=== PATIENT | female | born 1970 | race Caucasian/White ===

== ENCOUNTER 2016-11-12 17:47 | Emergency (ER) | payer BC ==
[~2016-11-12] VITALS: Ht 160 cm; Wt 55.0 kg
[~2016-11-12 17:47] MED LIST: CARV3.125 PO; LACT PO; XANA0.5T PO
[2016-11-12 17:48] VITALS: BP 125/60; PULSE 106; RESP 17; TEMP 98.5; O2SAT 99
[2016-11-12] MEDS ORDERED: IOHEXOL 350 MG/ML 10 ML VIAL (for RAD DIAG) IVCONTRAST ONE (17:48)
[2016-11-12] MEDS ORDERED: SODIUM CHLOR 0.9% 1000 ML INJ 1,000 ML IV SCH (18:10)
[2016-11-12] MEDS ORDERED: ONDANSETRON HCL 4 MG/2 ML VIAL IVP ONE (18:15)
[2016-11-12] MEDS ORDERED: KETOROLAC TROMETHAMINE 30 MG/ML (IVP) VIAL IVP ONE (18:15)
[2016-11-12] MEDS ORDERED: SODIUM CHLORIDE 0.9% FLUSH 10 ML FLUSH IV FLUSH PRN (18:15)
--- NOTE | 2016-11-12 18:19 | PD ---
HPI Chief Complaint: Flank/Kidney Pain Time Seen by Provider: 18:04 Travel History International Travel<30 days: No Contact w/Intl Traveler<30days: No Traveled to known affect area: No History of Present Illness HPI 46yo F with PMH of toxic shock syndrome and ovarian cyst presents to the ED with c/o left sided flank pain that radiates to lower abdomen since yesterday. States it is sharp, decreases with acetaminophen and constant. Associated with dysuria, nausea, fever. Denies any vomiting, chest pain, sob, hematuria, vaginal bleeding or discharge. States she had ultrasound done a few days ago to follow up on her ovarian cyst and it has not change in size. Last menstrual period is a few days ago. Denies any history of kidney stones or abdominal surgeries. Took a dose of amoxicillin that she had at home yesterday. PFSH Past Medical History Hx Anticoagulant Therapy: Yes (VITAMIN E DAILY) Arthritis: No Asthma: No Autoimmune Disease: No Anxiety: Yes Depression: No Heart Rhythm Problems: No Cancer: No High Cholesterol: No Chemotherapy: No Chest Pain: No Congestive Heart Failure: No COPD: No Cerebrovascular Accident: No Diabetes: No Diminished Hearing: No Endocrine: No GERD: No Genitourinary: No Hiatal Hernia: No Immune Disorder: No Kidney Stones: No Musculoskeletal: No Neurologic: No Psychiatric: Yes Reproductive: No Respiratory: No Migraines: No Radiation Therapy: No Renal Failure: No Seizures: No Sickle Cell Disease: No Sleep Apnea: No Thyroid Disease: No Ulcer: No ?: Not Menopausal: Yes Past Surgical History Abdominal Surgery: No AICD: No Arteriovenous Shunt: No Cardiac Surgery: No Ear Surgery: No Endocrine Surgery: No Eye Surgery: No Genitourinary Surgery: No Gynecologic Surgery: No Insulin Pump: No Joint Replacement: No Oral Surgery: No Pacemaker: No Thoracic Surgery: No Social History Alcohol Use: No Tobacco Use: No Substance Use: No Allergies-Medications (Allergen,Severity, Reaction): Coded Allergies: citalopram (Unverified Allergy, Unknown, 10/01/16) duloxetine (Unverified Allergy, Unknown, 10/01/16) fluvoxamine (Unverified Allergy, Unknown, 10/01/16) paroxetine (Unverified Allergy, Unknown, 10/01/16) sertraline (Unverified Allergy, Unknown, 10/01/16) venlafaxine (Unverified Allergy, Unknown, 10/01/16) Reported Meds & Prescriptions Reported Meds & Active Scripts Active Lactinex (Lactobacillus Acidophilus) 1 Tab Tab 1 Tab PO TID 10 Days Coreg 3.125 mg (Carvedilol) 3.125 Mg Tab 3.125 Mg PO Q12 30 Days Reported Xanax 0.5 mg (Alprazolam) Alprazolam 0.5 mg Tab 1 Tab PO DAILY PRN Review of Systems Except as stated in HPI: all other systems reviewed are Neg Physical Exam Narrative GENERAL: 46yo F in mild distress. SKIN: Focused skin assessment warm/dry. HEAD: Atraumatic. Normocephalic. EYES: Pupils equal and round. No scleral icterus. No injection or drainage. ENT: No nasal bleeding or discharge. Mucous membranes pink and moist. NECK: Trachea midline. No JVD. CARDIOVASCULAR: Regular rate and rhythm. No murmur appreciated. RESPIRATORY: No accessory muscle use. Clear to auscultation. Breath sounds equal bilaterally. GASTROINTESTINAL: Abdomen soft, +TTP suprapubic, LUQ, LLQ. No rebound tenderness or guarding. PELVIC: Brownish liquid, pt just finished her menstrual period, may be old blood. No CMT or adnexal tenderness bilaterally. BACK: +CVA tenderness on left. MUSCULOSKELETAL: No obvious deformities. No clubbing. No cyanosis. No edema. NEUROLOGICAL: Awake and alert. No obvious cranial nerve deficits. Motor grossly within normal limits. Normal speech. PSYCHIATRIC: Appropriate mood and affect; insight and judgment normal. Data Data Last Documented VS Vital Signs Date Time Temp Pulse Resp B/P (MAP) Pulse Ox O2 Delivery O2 Flow Rate FiO2 11/12/16 18:27 96 16 122/73 (89) 97 Room Air 11/12/16 17:48 98.5 Orders Orders Complete Blood Count With Diff (11/12/16 18:10) Comprehensive Metabolic Panel (11/12/16 18:10) Lipase (11/12/16 18:10) Urinalysis - C+S If Indicated (11/12/16 18:10) Iv Access Insert/Monitor (11/12/16 18:10) Ecg Monitoring (11/12/16 18:10) Oximetry (11/12/16 18:10) Ondansetron Inj (Zofran Inj) (11/12/16 18:15) Sodium Chlor 0.9% 1000 Ml Inj (Ns 1000 M (11/12/16 18:10) Sodium Chloride 0.9% Flush (Ns Flush) (11/12/16 18:15) Ketorolac Inj (Toradol Inj) (11/12/16 18:15) Ed Urine Pregnancytest Poc (11/12/16 18:10) Wet Prep Profile (11/12/16 18:12) Gc And Chlamydia Pcr (11/12/16 19:01) Ct Abd/Pel W Iv Contrast(Rout) (11/12/16 ) Morphine Inj (Morphine Inj) (11/12/16 19:15) Iohexol 350 Inj (Omnipaque 350 Inj) (11/12/16 17:48) Potassium Chloride (Kcl) (11/12/16 20:30) Labs Laboratory Tests Test 11/12/16 18:10 11/12/16 18:20 11/12/16 18:47 Urine Color LIGHT-YELLOW Urine Turbidity CLEAR Urine pH 6.5 Urine Specific [place] 1.005 Urine Protein NEG mg/dL Urine Glucose (UA) NEG mg/dL Urine Ketones NEG mg/dL Urine Occult Blood NEG Urine Nitrite NEG Urine Bilirubin NEG Urine Urobilinogen LESS THAN 2.0 MG/DL Urine Leukocyte Esterase NEG Urine Squamous Epithelial Cells 2 /hpf Microscopic Urinalysis Comment CULT NOT INDICATED White Blood Count 8.7 TH/MM3 Red Blood Count 4.23 MIL/MM3 Hemoglobin 12.5 GM/DL Hematocrit 37.4 % Mean Corpuscular Volume 88.4 FL Mean Corpuscular Hemoglobin 29.4 PG Mean Corpuscular Hemoglobin Concent 33.3 % Red Cell Distribution Width 13.8 % Platelet Count 169 TH/MM3 Mean Platelet Volume 8.6 FL Neutrophils (%) (Auto) 95.0 % Lymphocytes (%) (Auto) 2.8 % Monocytes (%) (Auto) 2.1 % Eosinophils (%) (Auto) 0.0 % Basophils (%) (Auto) 0.1 % Neutrophils # (Auto) 8.3 TH/MM3 Lymphocytes # (Auto) 0.2 TH/MM3 Monocytes # (Auto) 0.2 TH/MM3 Eosinophils # (Auto) 0.0 TH/MM3 Basophils # (Auto) 0.0 TH/MM3 CBC Comment DIFF FINAL Differential Comment Blood Urea Nitrogen 9 MG/DL Creatinine 0.68 MG/DL Random Glucose 120 MG/DL Total Protein 7.3 GM/DL Albumin 4.0 GM/DL Calcium Level 8.7 MG/DL Alkaline Phosphatase 61 U/L Aspartate Amino Transf (AST/SGOT) 13 U/L Alanine Aminotransferase (ALT/SGPT) 16 U/L Total Bilirubin 1.3 MG/DL Sodium Level 136 MEQ/L Potassium Level 3.3 MEQ/L Chloride Level 103 MEQ/L Carbon Dioxide Level 24.5 MEQ/L Anion Gap 9 MEQ/L Estimat Glomerular Filtration Rate 94 ML/MIN Lipase 94 U/L Clue Cells (Wet Prep) NONE SEEN Vaginal Trichomonas (Wet Prep) NONE SEEN Vaginal Yeast (Wet Prep) NONE SEEN MDM Medical Decision Making Medical Screen Exam Complete: Yes Emergency Medical Condition: Yes Differential Diagnosis pyelonephritis vs. nephrolithiasis vs. PID vs. cystitis Narrative Course 46yo F with left side flank and abdominal pain since yesterday. Labs reviewed, no leukocytosis. Mild hypokalemia at 3.3, will replace orally. Total bilirubin mildly elevated at 1.3. Lipase normal. UA negative. Wet prep negative. Pt given toradol, NS IVF and zofran. Pt reevaluated at bedside and still in pain. At this point, since pt has normal UA, will do CTa/p. CTa/p showed mild right and mild to moderate left hydronephrosis of unclear etiology but potentially related to markedly enlarged fibroid uterus increased since 2014. No definite ureteral calculus. Pt reevaluated after morphine and pain has resolved. Pt also able to tolerate PO. Pt states she knows about her fibroid and will follow up with [facility] [employer] Dr. Ovalle. Will also have pt follow up with urology as outpatient. Even though UA is negative, pt clinically has fever , left flank pain, dysuria so will still treat with antibiotics. Pt had taken a dose of antibiotic prior to coming. Return precautions given. Diagnosis Primary Impression: Hydronephrosis Qualified Codes: N13.30 - Unspecified hydronephrosis Referrals: Jeet Meng MD call for appointment Bilateral hydronephrosis, more on left side. Patient Instructions: General Instructions Departure Forms: Tests/Procedures Additional Instructions: Please follow up with your behavioral health case manager and urologist as an outpatient. Return to the ED if symptoms worsen. Med/Other Pt SpecificInfo: Prescription(s) given Scripts Sulfamethoxazole-Trimethoprim (Bactrim DS) 800-160 Mg Tab 1 TAB PO BID for Infection, #14 TAB 0 Refills Prov: Carol Carty DO 11/12/16 Hydrocodone-Acetaminophen (Lortab) 5-325 Mg Tab 1 TAB PO Q6H Y for PAIN, #10 TAB 0 Refills Prov: Carol Carty DO 11/12/16 Disposition: 01 DISCHARGE HOME Condition: Stable Carol Carty DO Nov 12, 2016 18:19
[2016-11-12 18:27] VITALS: BP 122/73; PULSE 96; RESP 16; O2SAT 97
[2016-11-12 19:04] LABS: BLOOD, URINE NEG (NEG); GLUCOSE,URINE NEG (NEG); KETONE, URINE NEG (NEG); NITRITE,URINE NEG (NEG); PH, URINE 6.5 (5.0-8.5); SQUAMOUS EPITHELIAL CELL URINE 2 /hpf (0-5); URINE COLOR LIGHT-YELLOW (YELLW/STRAW)
[2016-11-12 19:08] LABS: COMMENT (UR) CULT NOT INDICATED; CULTURE IF INDICATED CULT NOT INDICATED
[2016-11-12 19:12] LABS: AUTOMATED NEUTROPHIL # 8.3 TH/MM3 (1.8-7.7); BASOPHIL % 0.1 % (0.0-2.0); HEMATOCRIT 37.4 % (35.0-46.0); HEMO FLAGS DIFF FINAL; LYMPH % 2.8 % (9.0-44.0); LYMPHOCYTE # 0.2 TH/MM3 (1.0-4.8); MEAN CELL VOLUME 88.4 FL (80.0-100.0); MEAN CORPUSCULAR HEMOGLOBIN 29.4 PG (27.0-34.0); MEAN CORPUSCULAR HGB CONC 33.3 % (32.0-36.0); MONO % 2.1 % (0.0-8.0); PLATELET COUNT 169 TH/MM3 (150-450); RED BLOOD COUNT 4.23 MIL/MM3 (4.00-5.30); RED CELL DISTRIBUTION WIDTH 13.8 % (11.6-17.2); WHITE BLOOD COUNT 8.7 TH/MM3 (4.0-11.0)
[2016-11-12] MEDS ORDERED: MORPHINE SULFATE 4 MG/ML INJ IV PUSH ONE (19:15)
[2016-11-12 19:28] LABS: ANION GAP 9 MEQ/L (5-15); AST (GOT) 13 U/L (15-37); BICARBONATE 24.5 MEQ/L (21.0-32.0); BLOOD UREA NITROGEN 9 MG/DL (7-18); CHLORIDE 103 MEQ/L (98-107); GLOMERULAR FILTRATION RATE 94 ML/MIN (>89); POTASSIUM 3.3 MEQ/L (3.5-5.1); SODIUM (NA) 136 MEQ/L (136-145)
[2016-11-12 19:32] LABS: ALKALINE PHOSPHATASE 61 U/L (45-117); ALT (GPT) 16 U/L (10-53); TOTAL BILIRUBIN ADULT 1.3 MG/DL (0.2-1.0)
--- NOTE | 2016-11-12 20:14 | RADRPT ---
EXAM DATE/TIME: 11/12/2016 19:50 [facility] COMPARISON: No previous studies available for comparison. INDICATIONS : Left flank pain with fever. IV CONTRAST: 72 cc Omnipaque 350 (iohexol) IV ORAL CONTRAST: No oral contrast ingested. RADIATION DOSE: 8.30 CTDIvol (mGy) MEDICAL HISTORY : None SURGICAL HISTORY : None. ENCOUNTER: Initial ACUITY: 1 day PAIN SCALE: 8/10 LOCATION: Right flank TECHNIQUE: Volumetric scanning of the abdomen and pelvis was performed. Using automated exposure control and ad justment of the mA and/or kV according to patient size, radiation dose was kept as low as reasonably achievable to obtain optimal diagnostic quality images. DICOM format image data is available electro nically for review and comparison. FINDINGS: There is mild right and mild to moderate left hydronephrosis which is new. None clearly see a stone o n either side however, a very enlarged fibroid uterus is again noted and does appear to be causing so me mass effect on the distal ureters. Urinary bladder is within normal limits. Liver, spleen, pancreas and adrenal glands are within normal limits. CT appearance of the gallbladder within normal limits. No obstruction or acute inflammatory changes seen in the gastrointestinal tract. No free fluid. Taylor l appendix. CONCLUSION: Mild right and mild to moderate left hydronephrosis of unclear etiology but potentially related to ma rkedly enlarged fibroid uterus. Most of the fibroids as well as the overall size of the uterus increa sed since 2014. No definite ureteral calculus. Moshe Campos MD on November 12, 2016 at 20:09 Board Certified Radiologist. This report was verified electronically.
[2016-11-12] MEDS ORDERED: POTASSIUM CHLORIDE 20 MEQ CONTROLLED RELEASE TAB PO ONE (20:30)
[2016-11-12] MEDS ORDERED: BACT800T5 PO (20:48)
[2016-11-12] MEDS ORDERED: HYDR-3533 PO (20:48)
[2016-11-12 21:50] LABS: CHLAMYDIA PCR NOT DETECTED (NOT DETECT); NEISSERIA PCR NOT DETECTED (NOT DETECT)
== END 2016-11-12 21:29 | disposition home or self-care (01) ==
LOC: NEPD 17:47
DX: N13.30 Unspecified hydronephrosis (principal); R10.32 Left lower quadrant pain; E87.6 Hypokalemia
CPT/HCPCS: 74177; 80053; 81001; 83690; 84703; 85025; 87210; 87491; 87591; 96374; 96375; 99285; J1885; J2270; J2405; J7030; Q9967